=== PATIENT | female | born 1980 | race American Indian/Alaskan Native ===

== ENCOUNTER 2017-05-19 12:43 | Outpatient (CLI) | payer SELFPAY ==
[2017-05-19] MEDS ORDERED: LACTATED RINGERS 500 ML IV ONE (13:49)
[2017-05-19 14:21] LABS: Bacteria,Urine 1+ /HPF (Negative); Bilirubin,Urine NEG (Negative); Blood,Urine NEG (Negative); Ketones,Urine TR mg/dL (Negative); Leukocyte Esterase,Urine NEG (Negative); Mucus,Urine 1+ /HPF; Nitrite,Urine NEG (Negative)
[2017-05-19 15:14] LABS: Hematocrit 29.5 % (30.3-42.9); Hemoglobin 9.6 gm/dl (10.1-14.3); Mean Corpuscular HGB Conc 33 % (30-34); Mean Corpuscular Volume 76 fl (79-97); Platelet Count 232 K/mm3 (140-440); Red Blood Count 3.87 M/mm3 (3.65-5.03); White Blood Count 10.7 K/mm3 (4.5-11.0)
[2017-05-19 15:23] LABS: Mean Corpuscular Hemoglobin 25 pg (28-32)
[2017-05-19 15:34] VITALS: BP 140/71
[2017-05-19 15:37] LABS: Alanine Aminotransferase 9 units/L (7-56); Lactate Dehydrogenase 190 units/L (91-180); Uric Acid 4.7 mg/dL (3.5-7.6)
[2017-05-23 11:33] LABS: Total Protein 24 Hour,Urine 180.5 (2-200)
== END 2017-05-19 16:20 | disposition home or self-care (01) ==
LOC: TRG 12:43
PROVIDERS: ATTEND Obstetrics & Gynecology Gynecology
DX: O47.03 False labor before 37 completed weeks of gestation, third trimester (principal)
CPT/HCPCS: 36415; 59025; 81001; 82565; 82570; 83615; 84156; 84450; 84460; 84550; 85027

== ENCOUNTER 2017-06-03 09:43 | Inpatient (IN) | payer MEDICAID ==
--- NOTE | 2017-06-03 09:54 | History and Physical Report ---
History of Present Illness Date of examination: 06/03/17 Date of admission: 06/03/17 09:43 Chief complaint: Repeat C Section History of present illness: Pt is a 36yo BF EDC 06/10/17; EGA 39 0/7 weeks presents to L&D for a repeat C Section with BTL. She received late care at [facility] since 32 weeks and APA, and course has been unremarkable except for previous c section x3. records are available and GBS is Negative. Past History Past Medical History: no pertinent history Past Surgical History: section (x 3) Family/Genetic History: diabetes, hypertension Social history: no significant social history, single - Obstetrical History Expected Date of Delivery: 06/10/17 Actual Gestation: 39 Week(s) 0 Day(s) : 4 Medications and Allergies Allergies Allergy/AdvReac Type Severity Reaction Status Date / Time No Known Allergies Allergy Unverified 05/19/17 13:49 Home Medications Medication Instructions Recorded Confirmed Last Taken Type Ferrous Sulfate [Feosol 325 MG tab] 325 mg PO BID #60 tablet 06/03/17 Unknown Rx HYDROcodone/APAP 5-325 [[place] 1 each PO Q6HR PRN #30 tablet 06/03/17 Unknown Rx 5/325] Ibuprofen [Motrin] 800 mg PO Q8HR PRN #30 tablet 06/03/17 Unknown Rx Vit W-Ca,Fe,FA(<1 mg) 1 each PO DAILY #30 tablet 06/03/17 Unknown Rx [ Vitamins] Review of Systems All systems: negative - Physical Exam Breasts: Positive: deferred Cardiovascular: Regular rate Lungs: Positive: Clear to auscultation Abdomen: Positive: normal appearance Genitourinary (Female): Positive: normal external genitalia Vagina: Positive: normal moisture Uterus: Positive: enlarged Extremities: Positive: normal - Obstetrical FHR: category 1 Uterine Contraction Monitor Mode: External Results Result Diagrams: 06/03/17 10:50 All other labs normal. Assessment and Plan - Patient Problems (1) 39 weeks gestation of Onset Date: 06/03/17 Current Visit: Yes Status: Acute Plan to address problem: A: IUP @ 39 0/7 weeks Previous C Section x 3 Desires permanent sterilization P: Admit to L&D for a Repeat C Section with BTL (2) Previous delivery affecting Onset Date: 06/03/17 Current Visit: Yes Status: Acute (3) Anemia affecting fourth Onset Date: 06/03/17 Current Visit: Yes Status: Acute
[2017-06-03] MEDS ORDERED: BICITRA PO NR (10:00)
[2017-06-03] MEDS ORDERED: PITOCin/NS 20 UNIT/1000ML DRIP 20 UNITS/1,000 ML BAG IV SCH ×2 (10:00→14:00)
[2017-06-03] MEDS ORDERED: PEPCID IV NR (10:00)
[2017-06-03] MEDS ORDERED: ANCEF/STERILE WATER 2 GM/20 ML 2 GM/20 ML SYRINGE IV NR (10:00)
[2017-06-03] MEDS: LACTATED RINGERS 1,000 ML IV SCH ×2 (11:04→11:45)
[2017-06-03 11:10] LABS: Basophils % (Auto) 0.5 % (0.0-1.8); Eosinophils % (Auto) 0.8 % (0.0-4.3); Hematocrit 29.8 % (30.3-42.9); Hemoglobin 9.6 gm/dl (10.1-14.3); Mean Corpuscular HGB Conc 32 % (30-34); Mean Corpuscular Volume 75 fl (79-97); Platelet Count 251 K/mm3 (140-440); Red Blood Count 3.96 M/mm3 (3.65-5.03); Red Cell Distribution Width 17.4 % (13.2-15.2); White Blood Count 10.6 K/mm3 (4.5-11.0)
[2017-06-03 11:16] LABS: Mean Corpuscular Hemoglobin 24 pg (28-32)
--- NOTE | 2017-06-03 11:21 | Anesthesia Consultation ---
Anesthesia Consult and Med Hx Date of service: 06/03/17 - Airway Anesthetic Teeth Evaluation: Good ROM Head & Neck: Adequate Mental/Hyoid Distance: Adequate Mallampati Class: Class I Intubation Access Assessment: Probably Good - Pulmonary Exam CTA: Yes - Cardiac Exam Cardiac Exam: RRR - Pre-Operative Health Status ASA Pre-Surgery Classification: ASA3 Proposed Anesthetic Plan: General - Pulmonary Hx Asthma: No - Cardiovascular System Hx Hypertension: Yes (2014) - Central Nervous System Hx Seizures: No Hx Psychiatric Problems: No - Endocrine Hx Renal Disease: No Hx Hypothyroidism: No Hx Hyperthyroidism: No - Hematic Hx Anemia: No Hx Sickle Cell Disease: No - Other Systems Hx Alcohol Use: No - Additional Comments Anesthesia Medical History Comments: BMI>40. 3 previous C-Sx, NAC. No other previous surgery.
--- NOTE | 2017-06-03 11:25 | Anesthesia Day of Surgery ---
Anesthesia Day of Surgery - Day of Surgery Patient Examined: Yes Patient H&P Reviewed: Yes Patient is NPO: Yes
[2017-06-03] MEDS ORDERED: MORPHINE ONE (11:27)
[2017-06-03] MEDS: REGLAN IV NR ×2 (11:46→17:00)
[2017-06-03] MEDS ORDERED: WATER FOR IRRIG STERILE IR ONE (12:02)
[2017-06-03] MEDS ORDERED: NACL 0.9% IR ONE (12:02)
[2017-06-03] MEDS ORDERED: ZOFRAN ONE ×2 (12:46→12:51)
[2017-06-03] MEDS ORDERED: NACL 0.9% 1000 ML 1,000 ML ONE (12:51)
[2017-06-03] MEDS ORDERED: NEO SYNEPHRINE/NS Syringe(OR USE) IV ONE (13:00)
--- NOTE | 2017-06-03 13:22 | Operative Report ---
Operative Report Operative Report: Date of procedure: 06/03/2017 Pre-operative diagnosis: 1. Intrauterine at 39-0/7 weeks 2. Previous section 3 3. Advanced maternal age 4. Desires permanent sterilization Post-operative diagnosis: Same Procedure name(s): 1. Repeat low transverse section 2. Bilateral tubal ligation Surgeon: Rd Rosenthal MD Creative Writing Teacher: None Anesthesia: Spinal anesthesia by Dr. Bruce Abreu EBL: 1000 mL's Findings: A 3653 g female infant Apgars 8 at 1 minute 9 at 5 minutes. Meconium fluid. Normal uterus with lower uterine adhesions. Normal tubes and ovaries bilaterally. Procedure: After the patient was prepped and draped in usual sterile fashion, and after satisfactory level of epidural anesthesia was obtained, the skin knife was used to make a transverse skin incision through the previous skin scars. The incision was excised down to layer of the fascia, which was nicked in the midline and extended laterally using the Bovie cautery. The rectus muscles were dissected off the rectus fascia both superiorly and inferiorly. The rectus bellies in the midline, and the peritoneum was entered under direct visualization. Lower uterine adhesions were taken down using sharp and blunt dissection. The peritoneal incision was extended superiorly and inferiorly. A bladder flap was created and the bladder blade was then placed. The uterus was scored in a curvilinear linear fashion, entered in the midline revealing meconium amniotic fluid. The 's head was delivered onto the surgical field, and the oropharynx and nasopharynx were bulb suctioned. The rest of the 's body was delivered, cord was doubly clamped and cut and the infant was handed to the waiting respiratory team. The placenta was manually removed from the uterus, and the uterus removed from its normal anatomical position. After gentle uterine lavage, the incision was inspected and found to be without extensions. It was then closed in 2 layers using 0 Vicryl suture in a running interlocking fashion, the second layer imbricating the first. At this point, attention was turned to the tubal ligation. First the right fallopian tube was grasped using the Tasley, and after identifying the fimbriated end the right tube a Filshie clip was applied to the proximal portion of the tube. The same procedure was performed on the left fallopian tube. The tube was grasped using a Patience, after first identifying the fimbriated end of the left fallopian tube a Filshie clip was applied to the proximal portion of the tube. After good hemostasis was achieved, copious amounts or irrigation was performed , and the gutters were suctioned free of blood and blood clots. The Tisseel sealant was sprayed across the uterine incision. The uterus was then returned to its normal anatomical position, and after excellent hemostasis assured, the peritoneum was reapproximated using 3-0 Vicryl suture in a running interlocking fashion, and then the rectus muscles were reapproximated using 3-0 Vicryl suture in a [id number] configuration. The fascia was then reapproximated using 0 Vicryl suture in running interlocking fashion. The subcutaneous layer was made hemostatic using Bovie cautery, the Tisseel sealant was sprayed across the fascial incision and the skin edges reapproximated using 4-0 Vicryl suture in a subcuticular fashion. Patient tolerated the procedure well was transported to recovery in stable condition.
[2017-06-03] MEDS ORDERED: TUCKS PAD TP PRN (13:23)
[2017-06-03] MEDS ORDERED: MILK OF MAGNESIA PO PRN (13:23)
[2017-06-03] MEDS ORDERED: SENOKOT PO PRN (13:23)
[2017-06-03] MEDS ORDERED: ZOFRAN IV PRN (13:23)
[2017-06-03] MEDS ORDERED: NORCO 5/325 PO PRN (13:23)
[2017-06-03] MEDS ORDERED: MYLICON PO PRN (13:23)
[2017-06-03] MEDS ORDERED: TORADOL IV PRN (13:23)
[2017-06-03] MEDS ORDERED: LANSINOH TP PRN (13:23)
[2017-06-03] MEDS ORDERED: NARCAN 0.4 MG/1 ML IV PRN (13:23)
[2017-06-03] MEDS ORDERED: PHENERGAN PR PRN (13:23)
[2017-06-03] MEDS ORDERED: TYLENOL PO PRN (13:23)
--- NOTE | 2017-06-03 13:33 | Post Anesthesia Evaluation ---
- Post Anesthesia Evaluation Patient Participated: Yes Airway Patent: Yes Stable Respiratory Function: Yes Nausea/Vomiting: No Temp > 96.8F: Yes Pain Manageable: Yes Adequeate Hydration: Yes Anesthesia Complications: No Block Receding Appropriately: Yes Patient on Ventilator: No
[2017-06-03] MEDS ORDERED: D5LR 1,000 ML IV SCH (14:00)
[2017-06-03] MEDS ORDERED: SODIUM CHLORIDE FLUSH SYRINGE 10 ML IV NR (14:00)
[2017-06-03] MEDS ORDERED: ANCEF/NS 1 GM/50 ML 1 GM/50 ML BAG IV SCH (14:00)
[2017-06-03] MEDS ORDERED: PITOCin/NS 20 UNIT/1000ML DRIP 20,000 MILLIUNITS/1,000 ML BAG IV ONE ×2 (14:55→15:03)
[2017-06-03] MEDS ORDERED: CYTOTEC ONE (15:15)
[2017-06-03] MEDS ORDERED: SUBLIMAZE ONE (15:19)
[2017-06-03] MEDS ORDERED: METHERGINE IM ONE (15:24)
--- NOTE | 2017-06-03 15:31 | Event Note ---
Date: 06/03/17 Called to see pt with hemorrhage - passed 3 blood clots ~ 200ml. VSS BP 106/60; P80 Pt awake and alert fundus -firm bleeding - now minimal A/P: Post hemorrhage - now resolved and stable. Methergine IM/PO given Will continue IV bolus with pitocin and Methergine series Obtain STAT H/H Continue close monitoring
[2017-06-03 15:43] LABS: Hematocrit 26.6 % (30.3-42.9); Hemoglobin 8.3 gm/dl (10.1-14.3)
[2017-06-03] MEDS: METHERGINE PO SCH (22:10)
[2017-06-04 01:49] LABS: Hematocrit 26.1 % (30.3-42.9); Hemoglobin 8.3 gm/dl (10.1-14.3)
[2017-06-04] MEDS ORDERED: ANCEF/NS 1 GM/50 ML 1 GM/50 ML BAG IV SCH (04:00)
[2017-06-04] MEDS ORDERED: BOOSTRIX IM ONE (06:00)
[2017-06-04] MEDS ORDERED: M-M-R II VACCINE SUB-Q ONE (06:00)
[2017-06-04] MEDS: METHERGINE PO SCH ×2 (06:01→21:04)
[2017-06-04] MEDS ORDERED: BENADRYL PO PRN (09:13)
--- NOTE | 2017-06-04 09:29 | Progress Note ---
Subjective Date of service: 06/04/17 Interval history: No anesthetic related complaints. Objective - Constitutional Vitals: Vital Signs - 12hr 06/04/17 06/04/17 06/04/17 01:30 04:25 08:20 Temperature 98.4 F 98.5 F 99.1 F Pulse Rate 89 84 86 Respiratory 20 20 20 Rate Blood Pressure 160/83 168/82 155/75 - Labs CBC & Chem 7: 06/04/17 01:09 Labs: Abnormal lab results 06/03/17 06/03/17 06/04/17 Range/Units 10:50 15:31 01:09 Hgb 9.6 L 8.3 L 8.3 L (10.1-14.3) gm/dl Hct 29.8 L 26.6 L 26.1 L (30.3-42.9) % MCV 75 L (79-97) fl MCH 24 L (28-32) pg RDW 17.4 H (13.2-15.2) % [place] % (Auto) 9.3 H (0.0-7.3) % [place] # 1.0 H (0.0-0.8) K/mm3 Seg Neutrophils % 72.1 H (40.0-70.0) %
[2017-06-04] MEDS ORDERED: FEOSOL PO SCH (10:00)
[2017-06-04] MEDS ORDERED: PRENATAL VITAMIN PO SCH (10:00)
--- NOTE | 2017-06-04 11:19 | Progress Note ---
Assessment and Plan - Patient Problems (1) 39 weeks gestation of Onset Date: 06/03/17 Current Visit: Yes Status: Resolved (2) Previous delivery affecting Onset Date: 06/03/17 Current Visit: Yes Status: Resolved (3) Anemia affecting fourth Onset Date: 06/03/17 Current Visit: Yes Status: Acute (4) Status post repeat low transverse section Onset Date: 06/04/17 Current Visit: Yes Status: Resolved Plan to address problem: A: S/P Repeat C Section with BTL- POD #1 Doing well Asymptomatic anemia - stable P: Continue RPOC Anticipate discharge in 24-48hrs (5) Acute blood loss anemia Onset Date: 06/04/17 Current Visit: Yes Status: Resolved Subjective - Subjective Date of service: 06/04/17 Principal diagnosis: s/p Repeat C Section with BTL - POD #1 Interval history: Pt is feeling well without complaints. Bleeding improved. + Flatus. Patient reports: appetite normal, voiding normally, pain well controlled, flatus , ambulating normally [place]: doing well, bottle feeding Objective - Vital Signs Latest vital signs: Vital Signs Temp Pulse Resp BP Pulse Ox 06/04/17 08:20 99.1 F 86 20 155/75 06/04/17 04:25 98.5 F 84 20 168/82 06/04/17 01:30 98.4 F 89 20 160/83 06/03/17 20:30 98.0 F 79 18 157/80 06/03/17 16:50 97.6 F 73 18 148/78 06/03/17 15:10 18 06/03/17 13:22 977 F H 87 18 131/72 06/03/17 11:35 48 L 82 L 06/03/17 11:34 63 82 L 06/03/17 11:32 40 L 82 L 06/03/17 11:29 357 H 82 L 06/03/17 11:25 89 90 06/03/17 11:24 89 90 06/03/17 11:23 90 93 06/03/17 11:22 90 93 06/03/17 11:21 87 93 06/03/17 11:20 90 93 Intake and Output 06/03/17 06/04/17 06/04/17 22:59 06:59 14:59 Intake Total 245 240 120 Output Total 300 500 400 Balance -55 -260 -280 Intake: IV 125 Right 125 Oral 120 240 120 Output: Urine 300 500 400 Indwelling Catheter 300 500 Void 400 Other: Total, Intake Amount 120 120 120 Total, Output Amount 200 500 400 # Voids Void 1 - Exam Breasts: Present: deferred Cardiovascular: Present: Regular rate Lungs: Present: Clear to auscultation Abdomen: Present: normal appearance, soft Uterus: Present: normal, firm, fundal height below umbilicus Extremities: Present: normal Incision: Present: normal, dry, intact, dressed - Labs Labs: Abnormal lab results 06/03/17 06/04/17 Range/Units 15:31 01:09 Hgb 8.3 L 8.3 L (10.1-14.3) gm/dl Hct 26.6 L 26.1 L (30.3-42.9) % Laboratory Tests 06/03/17 06/03/17 06/03/17 10:50 10:50 15:31 WBC 10.6 RBC 3.96 Hgb 9.6 L 8.3 L Hct 29.8 L 26.6 L MCV 75 L MCH 24 L MCHC 32 RDW 17.4 H Plt Count 251 Lymph % (Auto) 17.3 [place] % (Auto) 9.3 H Eos % (Auto) 0.8 Baso % (Auto) 0.5 Lymph # 1.8 [place] # 1.0 H Eos # 0.1 Baso # 0.0 Seg Neutrophils % 72.1 H Seg Neutrophils # 7.6 Blood Type B POSITIVE Antibody Screen TNR JADA Antibody Screen Negative 06/04/17 01:09 WBC RBC Hgb 8.3 L Hct 26.1 L MCV MCH MCHC RDW Plt Count Lymph % (Auto) [place] % (Auto) Eos % (Auto) Baso % (Auto) Lymph # [place] # Eos # Baso # Seg Neutrophils % Seg Neutrophils # Blood Type Antibody Screen JADA Antibody Screen
[2017-06-04] MEDS: PERCOCET 5/325 PO PRN ×2 (15:56→22:24)
[2017-06-04] MEDS: MOTRIN PO PRN (21:04)
[2017-06-05] MEDS: MOTRIN PO PRN (05:44)
[2017-06-05] MEDS: PERCOCET 5/325 PO PRN (05:44)
[2017-06-05] MEDS: METHERGINE PO SCH (05:44)
[2017-06-05 08:51] VITALS: BP 146/71
--- NOTE | 2017-06-05 10:05 | Progress Note ---
Assessment and Plan - Patient Problems (1) 39 weeks gestation of Onset Date: 06/03/17 Current Visit: Yes Status: Resolved (2) Previous delivery affecting Onset Date: 06/03/17 Current Visit: Yes Status: Resolved (3) Anemia affecting fourth Onset Date: 06/03/17 Current Visit: Yes Status: Acute (4) Status post repeat low transverse section Onset Date: 06/04/17 Current Visit: Yes Status: Resolved Plan to address problem: A: S/P Repeat C Section with BTL- POD #2 Doing well Asymptomatic anemia - stable P: May go home today (5) Acute blood loss anemia Onset Date: 06/04/17 Current Visit: Yes Status: Resolved Subjective - Subjective Date of service: 06/05/17 Principal diagnosis: s/p Repeat C Section with BTL - POD #2 Interval history: Pt is feeling well without complaints. Tolerating a reg diet without nausea and vomiting, ambulating and voiding without difficulty. Patient reports: appetite normal, voiding normally, pain well controlled, flatus , ambulating normally : doing well, bottle feeding Objective - Vital Signs Latest vital signs: Vital Signs Temp Pulse Resp BP 06/05/17 07:58 98.2 F 91 H 20 146/71 06/05/17 00:25 98.2 F 95 H 20 157/64 06/04/17 15:56 20 06/04/17 15:30 98.8 F 98 H 20 149/71 06/04/17 12:30 98.7 F 101 H 20 154/72 Intake and Output 06/04/17 06/05/17 06/05/17 22:59 06:59 14:59 Intake Total 120 480 120 Output Total 400 Balance -280 480 120 Intake: Oral 120 480 120 Output: Urine 400 Void 400 Other: Total, Intake Amount 120 240 120 Total, Output Amount 400 # Voids Void 1 1 - Exam Breasts: Present: deferred Cardiovascular: Present: Regular rate Lungs: Present: Clear to auscultation Abdomen: Present: normal appearance, soft Uterus: Present: normal, firm, fundal height below umbilicus Extremities: Present: normal Incision: Present: normal, dry, intact
--- NOTE | 2017-06-05 10:07 | Discharge Summary ---
Providers - Providers Date of Admission: 06/03/17 09:43 Date of discharge: 06/05/17 Attending physician: NELLIE LEMOS Primary care physician: NELLIE LEMOS Hospitalization Reason for admission: section Delivery: Procedure: section, bilateral tubal ligation, repeat low transverse Episiotomy: none Incision: normal, dry, intact Other procedures: tubal ligation complications: none Discharge diagnosis: IUP at term delivered baby: female Hospital course: Pt is a 36yo BF EDC 06/10/17; EGA 39 0/7 weeks who presented to L&D for a repeat C Section #4 with BTL. She underwent a repeat C Section with BTL and tolerated the procedure well. Post operative course was unremarkable except for post hemorrhage that was controlled with medication, and by POD #2 she was tolerating a reg diet without nausea or vomiting, ambulating and voiding without difficulty. She was therefore discharged to home on POD #2 in stable condition. Condition at discharge: Good Disposition: DC-01 TO HOME OR SELFCARE - Discharge Diagnoses (1) 39 weeks gestation of Status: Resolved (2) Previous delivery affecting Status: Resolved (3) Anemia affecting fourth Status: Acute (4) Status post repeat low transverse section Status: Resolved (5) Acute blood loss anemia Status: Resolved Plan - Discharge Medications Prescriptions: Ferrous Sulfate [Feosol 325 MG tab] 325 mg PO BID #60 tablet HYDROcodone/APAP 5-325 [[place] 5/325] 1 each PO Q6HR PRN #30 tablet PRN Reason: Pain Ibuprofen [Motrin] 800 mg PO Q8HR PRN #30 tablet PRN Reason: Moder Pain Unrelieved By [place] Vit W-Ca,Fe,FA(<1 mg) [ Vitamins] 1 each PO DAILY #30 tablet - Provider Discharge Summary Activity: routine, no sex for 6 weeks, no heavy lifting 4 weeks, no strenuous exercise Diet: routine Instructions: routine Additional instructions: [] Smoking cessation referral if applicable(refer to patient education folder for contact #) [] Refer to [facility] Booklet Call your doctor immediately for: * Fever > 100.5 * Heavy vaginal bleeding ( >1 pad per hour) * Severe persistent headache * Shortness of breath * Reddened, hot, painful area to leg or breast * Drainage or odor from incision. * Keep incision clean and dry at all times and follow doctor's instructions regarding bathing/showering - Follow up plan Follow up: NELLIE LEMOS MD [Primary Care Provider] - 14 Days
== END 2017-06-05 11:10 | disposition home or self-care (01) | DRG 765 ==
LOC: APU 09:43 → OB 14:47
PROVIDERS: ADMIT Obstetrics & Gynecology; ATTEND Obstetrics & Gynecology
PROC: 0UL70CZ Occlusion of Bilateral Fallopian Tubes with Extraluminal Device, Open Approach (ICD-10-PCS; principal; 2017-06-03)
PROC: 10D00Z1 Extraction of Products of Conception, Low, Open Approach (ICD-10-PCS; 2017-06-03)
DX: O34.211 Maternal care for low transverse scar from previous cesarean delivery (principal); O10.92 Unspecified pre-existing hypertension complicating childbirth; O72.1 Other immediate postpartum hemorrhage; D62 Acute posthemorrhagic anemia; O99.02 Anemia complicating childbirth; O77.0 Labor and delivery complicated by meconium in amniotic fluid; Z30.2 Encounter for sterilization; Z3A.39 39 weeks gestation of pregnancy; Z37.0 Single live birth; Z83.3 Family history of diabetes mellitus; Z82.49 Family history of ischemic heart disease and other diseases of the circulatory system; O09.523 Supervision of elderly multigravida, third trimester
CPT/HCPCS: 36415; 85014; 85018; 85025; 86850; 86900; 86901; C9250; J0690; J1885; J2270; J2370; J2405; J2590; J2765; J3010; J7030; J7120; J7121